=== PATIENT | male | born 2005 | race Hispanic/Latino ===

== ENCOUNTER 2023-07-27 10:28 | Emergency (ER) | payer OTHER ==
[~2023-07-27] VITALS: Ht 165.1 cm; Wt 76.4 kg
[2023-07-27 10:28] VITALS: BP 131/78; TEMP 98; O2SAT 99
== END 2023-07-27 14:30 | disposition home or self-care (01) ==
LOC: M ED 10:28
DX: M25.561 Pain in right knee (principal); Y92.9 Unspecified place or not applicable; Y93.89 Activity, other specified; Y99.1 Military activity